=== PATIENT | male | born 1985 | race Two or more races ===

== ENCOUNTER 2018-10-30 20:52 | Emergency (ER) | payer SELFPAY ==
[~2018-10-30] VITALS: Ht 195.6 cm; Wt 84.0 kg
[2018-10-30] MEDS ORDERED: OLANZAPINE 10 MG/VIAL IM STA (21:29)
[2018-10-30] MEDS ORDERED: LORAZEPAM 2MG/ML CPJ IM STA (21:29)
[2018-10-30] MEDS ORDERED: SODIUM CHLORIDE 0.9% 1,000 ML IV ONE (21:29)
[2018-10-30 22:37] LABS: BASOPHILS % 0.9 % (0.0-2.0); HEMATOCRIT. 38.9 % (42.0-52.0); HEMOGLOBIN. 13.3 g/dL (14.0-18.0); LYMPHOCYTES % 42.6 % (20.0-50.0); MEAN CORPUSCULAR VOLUME 84.9 fL (80.0-94.0); MEAN PLATELET VOLUME 8.5 fl (7.4-10.4); MONOCYTES % 8.9 % (2.0-8.0); NEUTROPHILS % 40.6 % (40.0-76.0); PLATELET 255 x1000/uL (130-400); RED BLOOD CELL COUNT 4.59 mill/uL (4.7-6.1); RED CELL DISTRIBUTION WIDTH 14.8 % (11.6-14.6)
[2018-10-30 22:43] LABS: CHLORIDE 112 mEq/L (98-107)
[2018-10-30 22:48] LABS: ETHANOL BLOOD < 10 mg/dL
[2018-10-30 23:04] LABS: CREATINE KINASE 1602 IU/L (39-308)
[2018-10-30] MEDS ORDERED: SODIUM CHLORIDE 0.9% 1000ML BAG (SEPSIS BOLUS) IV ONE (23:30)
[2018-10-30] MEDS ORDERED: LACTULOSE 20G/30ML UDC PO ONE (23:30)
[2018-10-31] MEDS ORDERED: LORAZEPAM 1MG TABLET PO NR (01:30)
[2018-10-31 02:10] LABS: CREATINE KINASE 1570 IU/L (39-308)
[2018-10-31 03:37] LABS: CLARITY URINE CLEAR (CLEAR); COLOR URINE YELLOW (YELLOW); KETONES URINE NEGATIVE (NEGATIVE); LEUKOCYTE ESTERASE URINE 2+ (NEGATIVE); NITRITE URINE NEGATIVE (NEGATIVE); OCCULT BLOOD URINE NEGATIVE (NEGATIVE); PH URINE 6.5 (4.5-8.0); PROTEIN URINE NEGATIVE (NEGATIVE)
[2018-10-31 03:47] LABS: PHENCYCLIDINE URINE SCREEN NEGATIVE (NEGATIVE)
[2018-10-31 03:48] LABS: *AMPHETAMINES SCREEN URINE NEGATIVE (NEGATIVE); *BARBITURATES SCREEN URINE NEGATIVE (NEGATIVE); *BENZODIAZEPINES SCREEN URINE PRESUMTIVE POSITIVE (NEGATIVE); *COCAINE SCREEN URINE NEGATIVE (NEGATIVE); CANNABINOID URINE SCREEN PRESUMTIVE POSITIVE (NEGATIVE); METHADONE URINE SCREEN NEGATIVE (NEGATIVE); OPIATES URINE SCREEN NEGATIVE (NEGATIVE)
[2018-10-31] MEDS ORDERED: SODIUM CHLORIDE 0.9% 1,000 ML IV NR (05:30)
[2018-10-31] MEDS ORDERED: HALOPERIDOL LACTATE 5MG/ML VIAL IM ONE ×2 (07:30→14:00)
[2018-10-31] MEDS ORDERED: LORAZEPAM 2MG/ML CPJ IM ONE ×2 (07:30→14:00)
[2018-10-31] MEDS: SODIUM CHLORIDE 0.9% 1,000 ML IV SCH ×2 (13:40→20:12)
[2018-10-31] MEDS ORDERED: ONDANSETRON HCL 4MG/2ML INJ IV PRN (13:45)
[2018-10-31] MEDS ORDERED: ACETAMINOPHEN 325MG TABLET PO PRN (13:45)
[2018-10-31] MEDS ORDERED: IPRATROPIUM/ALBUTEROL 0.5-3(2.5)MG/3ML NEB HHN PRN (13:45)
[2018-10-31] MEDS ORDERED: KETOROLAC 15MG/ML VIAL IV PRN (13:45)
[2018-10-31] MEDS ORDERED: CLONIDINE 0.1MG TABLET PO PRN (13:45)
[2018-10-31] MEDS ORDERED: DOCUSATE SODIUM 100MG CAPSULE PO PRN (13:45)
[2018-10-31] MEDS ORDERED: NITROGLYCERIN 0.4MG TABLET SL SL PRN (13:45)
[2018-10-31] MEDS ORDERED: GUAIFENESIN 200MG/10ML SUGAR FREE UDC PO PRN (13:45)
[2018-10-31] MEDS ORDERED: MAGNESIUM/ALUMINUM HYDROXIDE/SIMETHICONE 30ML UDC PO PRN (13:45)
[2018-10-31] MEDS ORDERED: ZOLPIDEM TARTRATE 5MG TABLET PO PRN (13:45)
[2018-10-31] MEDS ORDERED: HALOPERIDOL LACTATE 5MG/ML VIAL IM NR (20:00)
[2018-10-31] MEDS ORDERED: FAMOTIDINE 20MG TABLET PO SCH (20:00)
[2018-10-31] MEDS ORDERED: LORAZEPAM 2MG/ML CPJ IM NR (20:00)
[2018-10-31] MEDS ORDERED: LORAZEPAM 2MG/ML CPJ IV ONE (21:45)
[2018-10-31] MEDS ORDERED: HALOPERIDOL LACTATE 5MG/ML VIAL IM PRN (22:00)
[2018-11-01] MEDS ORDERED: OLANZAPINE 10 MG/VIAL IM NR (01:30)
[2018-11-01] MEDS: SODIUM CHLORIDE 0.9% 1,000 ML IV SCH (02:52)
[2018-11-01 13:03] LABS: CREATINE KINASE MB FRACTION 7.7 ng/mL (0.5-3.6)
[2018-11-01] MEDS ORDERED: RISPERIDONE 0.5MG TABLET PO NR (14:00)
[2018-11-01 16:23] VITALS: BP 132/78
[2018-11-01] MEDS ORDERED: RISPERIDONE 0.5MG TABLET PO SCH (18:00)
== END 2018-11-01 17:33 | disposition home or self-care (01) ==
LOC: ER 20:52 → CANRESERV 10-31 07:02 → ENRESERV 10-31 07:02 → EDBEDREQ 10-31 10:41 → CANBEDREQ 11-01 16:33 → ER 11-01 17:33
DX: R41.82 Altered mental status, unspecified (principal); Z98.890 Other specified postprocedural states
CPT/HCPCS: 36415; 70450; 80053; 80307; 80320; 80329; 82140; 82550; 82553; 84443; 85025; 93005; 96372; 99284; J1630; J2060; J3490; J7030; Z7610; G0480